=== PATIENT | female | born 1940 | race African-American/Black ===

== ENCOUNTER 2020-06-17 03:13 | Inpatient (IN) | payer MEDICARE, OTHER ==
[~2020-06-17] VITALS: Ht 167.6 cm; Wt 98.0 kg
[2020-06-17 04:49] LABS: BASOPHILS % 0.6 % (0.0-2.0); EOSINOPHILS % 1.5 % (0.0-5.0); HEMATOCRIT. 43.2 % (36.0-48.0); HEMOGLOBIN. 14.1 g/dL (12.0-16.0); LYMPHOCYTES % 32.2 % (20.0-50.0); MEAN CORPUSCULAR HEMOGLOBIN 30.8 pg (28.0-32.0); MEAN CORPUSCULAR VOLUME 94.1 fL (81.0-99.0); MEAN PLATELET VOLUME 9.8 fl (7.4-10.4); MONOCYTES % 9.9 % (2.0-8.0); NEUTROPHILS % 55.8 % (40.0-76.0); PLATELET 224 x1000/uL (130-400); RED BLOOD CELL COUNT 4.59 mill/uL (4.2-5.4); RED CELL DISTRIBUTION WIDTH 14.1 % (11.6-14.6)
[2020-06-17 04:50] LABS: CHLORIDE 106 mEq/L (98-107)
[2020-06-17 04:53] LABS: INR 1.1; PROTHROMBIN TIME 11.1 sec (9.6-11.0)
[2020-06-17 04:54] LABS: ETHANOL BLOOD < 10 mg/dL
[2020-06-17 05:13] LABS: CLARITY URINE CLOUDY (CLEAR); COLOR URINE RED (YELLOW); KETONES URINE NEGATIVE (NEGATIVE); LEUKOCYTE ESTERASE URINE TRACE (NEGATIVE); NITRITE URINE NEGATIVE (NEGATIVE); OCCULT BLOOD URINE 3+ (NEGATIVE); PROTEIN URINE 2+ (NEGATIVE); SPECIFIC GRAVITY URINE 1.012 (1.005-1.030); UROBILINOGEN URINE 0.2 E.U./dL (0.2-1.0)
[2020-06-17 05:24] LABS: OPIATES URINE SCREEN PRESUMTIVE POSITIVE (NEGATIVE)
[2020-06-17 05:25] LABS: *AMPHETAMINES SCREEN URINE NEGATIVE (NEGATIVE); *BARBITURATES SCREEN URINE NEGATIVE (NEGATIVE); *BENZODIAZEPINES SCREEN URINE NEGATIVE (NEGATIVE); *COCAINE SCREEN URINE NEGATIVE (NEGATIVE); CANNABINOID URINE SCREEN NEGATIVE (NEGATIVE); METHADONE URINE SCREEN NEGATIVE (NEGATIVE); PHENCYCLIDINE URINE SCREEN NEGATIVE (NEGATIVE)
[2020-06-17] MEDS ORDERED: DOCU-286 MT (06:32)
[2020-06-17] MEDS ORDERED: LISI-604 PO (06:37)
[2020-06-17] MEDS ORDERED: VALS160T28 MT (06:37)
[2020-06-17] MEDS ORDERED: AMLO10TA80 MT (06:40)
[2020-06-17] MEDS ORDERED: SIMV-46 MT (06:42)
[2020-06-17] MEDS ORDERED: PHEN100C4 PO (06:46)
[2020-06-17] MEDS ORDERED: PHENYTOIN SODIUM 1000MG in SODIUM CHLORIDE 0.9% 100ML IV SCH (08:00)
[2020-06-17] MEDS: AMLODIPINE 10MG TABLET PO SCH (08:55)
[2020-06-17] MEDS: LISINOPRIL 20MG TABLET PO SCH (08:57)
[2020-06-17] MEDS ORDERED: LORAZEPAM 0.5MG TABLET PO SCH (13:30)
[2020-06-17] MEDS ORDERED: HYDRALAZINE HCL 100MG TABLET PO SCH (14:00)
[2020-06-17] MEDS ORDERED: POTASSIUM CHLORIDE 20MEQ TABLET SR PO SCH (14:00)
[2020-06-17] MEDS: HYDROCODONE/ACETAMINOPHEN 10/325MG TABLET PO PRN ×2 (16:37→20:41)
[2020-06-17] MEDS ORDERED: CLONIDINE 0.1MG TABLET PO SCH (17:00)
[2020-06-17 18:03] VITALS: BP 158/55
[2020-06-17 20:00] VITALS: BP 130/79
[2020-06-17] MEDS: PHENYTOIN SODIUM EXTENDED 100MG CAPSULE PO SCH (20:41)
[2020-06-17] MEDS ORDERED: ATORVASTATIN CALCIUM 20MG TABLET PO SCH (21:00)
[2020-06-17] MEDS: HYDRALAZINE HCL 100MG TABLET PO SCH (22:33)
[2020-06-18] VITALS (7 sets, daily range): BP systolic 96–168; BP diastolic 53–99
[2020-06-18 06:00] LABS: CHLORIDE 106 mEq/L (98-107)
[2020-06-18] MEDS: HYDRALAZINE HCL 100MG TABLET PO SCH ×2 (06:13→14:28)
[2020-06-18 06:43] LABS: BASOPHILS % 0.5 % (0.0-2.0); EOSINOPHILS % 0.6 % (0.0-5.0); HEMATOCRIT. 42.2 % (36.0-48.0); HEMOGLOBIN. 13.9 g/dL (12.0-16.0); LYMPHOCYTES % 20.3 % (20.0-50.0); MEAN CORPUSCULAR HEMOGLOBIN 30.5 pg (28.0-32.0); MEAN CORPUSCULAR VOLUME 92.6 fL (81.0-99.0); MEAN PLATELET VOLUME 10.4 fl (7.4-10.4); MONOCYTES % 11.6 % (2.0-8.0); PLATELET 243 x1000/uL (130-400); RED BLOOD CELL COUNT 4.55 mill/uL (4.2-5.4); RED CELL DISTRIBUTION WIDTH 13.9 % (11.6-14.6)
[2020-06-18] MEDS: LISINOPRIL 20MG TABLET PO SCH (08:23)
[2020-06-18] MEDS: HYDROCODONE/ACETAMINOPHEN 10/325MG TABLET PO PRN ×2 (08:24→12:40)
[2020-06-18] MEDS: PHENYTOIN SODIUM EXTENDED 100MG CAPSULE PO SCH (08:25)
[2020-06-18] MEDS: AMLODIPINE 10MG TABLET PO SCH (08:25)
[2020-06-18] MEDS ORDERED: CLONIDINE 0.2MG TABLET PO SCH (14:00)
[2020-06-18] MEDS ORDERED: PHENYTOIN SODIUM EXTENDED 100MG CAPSULE PO SCH (16:00)
== END 2020-06-18 18:49 | disposition home or self-care (01) | DRG 101 ==
LOC: ER 03:13 → 5EST 06:22 → ENRESERV 15:57
PROVIDERS: ADMIT Internal Medicine; ATTEND Internal Medicine
DX: G40.909 Epilepsy, unspecified, not intractable, without status epilepticus (principal); E87.6 Hypokalemia; E11.9 Type 2 diabetes mellitus without complications; I10 Essential (primary) hypertension; Z79.899 Other long term (current) drug therapy; Z98.890 Other specified postprocedural states
CPT/HCPCS: 36415; 70551; 80048; 80053; 80185; 80305; 80320; 81003; 84484; 85025; 93005; 97162; 99285; J1165; J7050; G0480

== ENCOUNTER 2021-02-04 14:08 | Inpatient (IN) | payer MEDICARE, OTHER ==
[~2021-02-04] VITALS: Ht 162.6 cm; Wt 102.3 kg
[~2021-02-04 14:08] MED LIST: AMLO10TA80 MT; DOCU-286 MT; LISI20TA31 PO; PHEN100C4 PO; SIMV-46 MT; VALS160T28 MT
[2021-02-04] MEDS ORDERED: ACETAMINOPHEN 325MG TABLET PO ONE (15:30)
[2021-02-04 16:09] LABS: BASOPHILS % 0.6 % (0.0-2.0); CHLORIDE 98 mEq/L (98-107); EOSINOPHILS % 0.1 % (0.0-5.0); HEMATOCRIT. 37.8 % (36.0-48.0); HEMOGLOBIN. 12.7 g/dL (12.0-16.0); LYMPHOCYTES % 9.8 % (20.0-50.0); MEAN CORPUSCULAR HEMOGLOBIN 31.1 pg (28.0-32.0); MEAN CORPUSCULAR VOLUME 92.8 fL (81.0-99.0); MEAN PLATELET VOLUME 10.3 fl (7.4-10.4); MONOCYTES % 8.9 % (2.0-8.0); NEUTROPHILS % 80.6 % (40.0-76.0); PLATELET 218 x1000/uL (130-400); RED BLOOD CELL COUNT 4.07 mill/uL (4.2-5.4)
[2021-02-04] MEDS ORDERED: HYDROCODONE/ACETAMINOPHEN 5/325MG TABLET PO ONE (16:30)
[2021-02-04 16:32] LABS: CLARITY URINE CLEAR (CLEAR); COLOR URINE YELLOW (YELLOW); KETONES URINE NEGATIVE (NEGATIVE); LEUKOCYTE ESTERASE URINE NEGATIVE (NEGATIVE); NITRITE URINE NEGATIVE (NEGATIVE); OCCULT BLOOD URINE 2+ (NEGATIVE); PH URINE 5.5 (4.5-8.0); PROTEIN URINE TRACE (NEGATIVE); SPECIFIC GRAVITY URINE 1.015 (1.005-1.030); UROBILINOGEN URINE 0.2 E.U./dL (0.2-1.0)
[2021-02-04] MEDS ORDERED: CEFTRIAXONE 1 G PREMIX 50 ML IV ONE (17:15)
[2021-02-04] MEDS ORDERED: SODIUM CHLORIDE 0.9% 1,000 ML IV ONE (17:15)
[2021-02-04] MEDS ORDERED: ONDANSETRON HCL 4MG/2ML INJ IV ONE (17:15)
[2021-02-04] MEDS: LOSARTAN POTASSIUM 50 MG TABLET PO SCH (21:36)
[2021-02-04 22:01] VITALS: BP 177/65
[2021-02-04 22:09] VITALS: BP 177/65
[2021-02-04] MEDS ORDERED: ACETAMINOPHEN 325MG TABLET PO PRN (22:58)
[2021-02-04] MEDS ORDERED: HYDROCODONE/ACETAMINOPHEN 5/325MG TABLET PO NR (23:00)
[2021-02-04] MEDS ORDERED: CLONIDINE 0.2MG TABLET PO PRN (23:00)
[2021-02-04] MEDS ORDERED: ASPIRIN 81MG TABLET PO NR (23:00)
[2021-02-04] MEDS ORDERED: LORAZEPAM 2MG/ML CPJ IV PRN (23:22)
[2021-02-05] VITALS: BP 181/83
[2021-02-05] MEDS: CLONIDINE 0.2MG TABLET PO PRN ×2 (00:31→17:36)
[2021-02-05 04:00] VITALS: BP_SYST 108; BP_SYST 151; BP_DIAS 44; BP_DIAS 51
[2021-02-05 08:00] VITALS: BP 165/85
[2021-02-05] MEDS: LOSARTAN POTASSIUM 50 MG TABLET PO SCH ×2 (09:05→21:23)
[2021-02-05] MEDS: ENOXAPARIN 30MG/0.3ML SYR SUBCUT SCH ×2 (09:06→21:23)
[2021-02-05] MEDS: PHENYTOIN SODIUM EXTENDED 100MG CAPSULE PO SCH ×3 (11:37→21:23)
[2021-02-05] MEDS: SODIUM CHLORIDE 0.45% 1,000 ML IV SCH ×2 (11:38→19:56)
[2021-02-05] MEDS ORDERED: LORAZEPAM 2MG/ML CPJ IV PRN (11:45)
[2021-02-05 12:00] VITALS: BP 141/63
[2021-02-05 15:27] LABS: BASOPHILS % 0.7 % (0.0-2.0); EOSINOPHILS % 2.8 % (0.0-5.0); HEMATOCRIT. 36.6 % (36.0-48.0); HEMOGLOBIN. 12.5 g/dL (12.0-16.0); LYMPHOCYTES % 24.2 % (20.0-50.0); MEAN CORPUSCULAR HEMOGLOBIN 31.4 pg (28.0-32.0); MEAN CORPUSCULAR VOLUME 92.2 fL (81.0-99.0); MEAN PLATELET VOLUME 10.7 fl (7.4-10.4); MONOCYTES % 10.9 % (2.0-8.0); NEUTROPHILS % 61.4 % (40.0-76.0); PLATELET 211 x1000/uL (130-400); RED BLOOD CELL COUNT 3.97 mill/uL (4.2-5.4); RED CELL DISTRIBUTION WIDTH 13.7 % (11.6-14.6)
[2021-02-05 15:29] LABS: CHLORIDE 103 mEq/L (98-107)
[2021-02-05 15:35] LABS: INR 1.1; PROTHROMBIN TIME 11.5 sec (9.6-11.0)
[2021-02-05 16:00] VITALS: BP 162/84
[2021-02-05] MEDS ORDERED: LACTULOSE 20G/30ML UDC PO PRN (17:30)
[2021-02-05] MEDS ORDERED: IPRATROPIUM/ALBUTEROL 0.5-3(2.5)MG/3ML NEB HHN PRN (17:30)
[2021-02-05] MEDS ORDERED: ONDANSETRON HCL 4MG/2ML INJ IV PRN (17:30)
[2021-02-05] MEDS ORDERED: BISACODYL 10MG SUPP PR PRN (17:30)
[2021-02-05] MEDS: HYDROCODONE/ACETAMINOPHEN 10/325MG TABLET PO PRN (17:41)
[2021-02-05 20:00] VITALS: BP 125/56
[2021-02-05] MEDS ORDERED: FAMOTIDINE 20MG TABLET PO SCH (21:00)
[2021-02-06] VITALS: BP 143/82
[2021-02-06 04:00] VITALS: BP 151/83
[2021-02-06] MEDS: PHENYTOIN SODIUM EXTENDED 100MG CAPSULE PO SCH ×2 (05:27→14:09)
[2021-02-06 06:42] LABS: BASOPHILS % 0.6 % (0.0-2.0); EOSINOPHILS % 2.3 % (0.0-5.0); HEMATOCRIT. 39.5 % (36.0-48.0); HEMOGLOBIN. 13.1 g/dL (12.0-16.0); LYMPHOCYTES % 23.8 % (20.0-50.0); MEAN CORPUSCULAR HEMOGLOBIN 30.9 pg (28.0-32.0); MEAN CORPUSCULAR VOLUME 93.4 fL (81.0-99.0); MEAN PLATELET VOLUME 10.9 fl (7.4-10.4); MONOCYTES % 12.6 % (2.0-8.0); NEUTROPHILS % 60.7 % (40.0-76.0); PLATELET 211 x1000/uL (130-400); RED BLOOD CELL COUNT 4.23 mill/uL (4.2-5.4); RED CELL DISTRIBUTION WIDTH 13.7 % (11.6-14.6)
[2021-02-06 06:57] LABS: CHLORIDE 105 mEq/L (98-107)
[2021-02-06 07:17] LABS: LDL CHOLESTEROL 143 mg/dL (5-100)
[2021-02-06 07:19] LABS: HDL CHOLESTEROL 73 mg/dL (40-59); T4 FREE 0.83 ng/dL (0.76-1.46)
[2021-02-06 08:00] VITALS: BP 105/86
[2021-02-06] MEDS: LOSARTAN POTASSIUM 50 MG TABLET PO SCH (08:39)
[2021-02-06] MEDS: ENOXAPARIN 30MG/0.3ML SYR SUBCUT SCH (08:52)
[2021-02-06 12:00] VITALS: BP 151/76
[2021-02-06] MEDS: HYDROCODONE/ACETAMINOPHEN 10/325MG TABLET PO PRN (12:02)
[2021-02-06] MEDS ORDERED: DOCU-138 MT (12:28)
[2021-02-06] MEDS ORDERED: HYDR-4001 MT (12:28)
[2021-02-06 13:05] VITALS: BP 150/76
[2021-02-06] MEDS ORDERED: ATORVASTATIN CALCIUM 40MG TABLET PO SCH (21:00)
== END 2021-02-06 14:50 | disposition home or self-care (01) | DRG 552 ==
LOC: ER 14:18 → 5WST 17:11 → EDBEDREQ 17:14 → EDBEDREQTM 17:14 → ENRESERV 19:22
PROVIDERS: ADMIT Internal Medicine; ATTEND Internal Medicine
DX: M48.061 Spinal stenosis, lumbar region without neurogenic claudication (principal); E87.1 Hypo-osmolality and hyponatremia; M43.17 Spondylolisthesis, lumbosacral region; E66.9 Obesity, unspecified; G89.29 Other chronic pain; G40.909 Epilepsy, unspecified, not intractable, without status epilepticus; F17.200 Nicotine dependence, unspecified, uncomplicated; M47.897 Other spondylosis, lumbosacral region; Z82.49 Family history of ischemic heart disease and other diseases of the circulatory system; Z86.73 Personal history of transient ischemic attack (TIA), and cerebral infarction without residual deficits; Z86.011 Personal history of benign neoplasm of the brain; Z79.899 Other long term (current) drug therapy; Z68.38 Body mass index [BMI] 38.0-38.9, adult; Z87.311 Personal history of (healed) other pathological fracture; R73.9 Hyperglycemia, unspecified; I10 Essential (primary) hypertension
CPT/HCPCS: 36415; 71045; 72100; 72148; 80048; 80053; 80061; 80185; 81003; 83036; 83880; 84439; 84443; 84484; 85025; 93005; 93306; 97116; 97162; 99285; J0696; J1650; J2060; J2405; J7030

== ENCOUNTER 2024-06-27 02:53 | Emergency (ER) | payer MEDICARE, MEDICAID ==
[~2024-06-27] VITALS: Ht 157.5 cm; Wt 60.0 kg
[~2024-06-27 02:53] MED LIST changes: +DOCU-138 MT; +HYDR-4001 MT
[2024-06-27 02:57] VITALS: PULSE 68; RESP 23
[2024-06-27 03:05] VITALS: PULSE 135; TEMP 36.05844; O2SAT 100
[2024-06-27 03:15] VITALS: RESP 16
[2024-06-27] MEDS: PROPOFOL 10MG/ML 100ML 100 ML IV ONE (03:15)
[2024-06-27] MEDS ORDERED: NOREPINEPHRINE 8 MG in DEXT 5% WATER 242 ML IV PRN (03:15)
[2024-06-27] MEDS ORDERED: SODIUM BICARBONATE 8.4% 50MEQ/50ML SYR IV ONE (03:35)
[2024-06-27] MEDS ORDERED: SODIUM BICARBONATE 100 MEQ in DEXTROSE 5% WATER 900 ML IV SCH (03:45)
[2024-06-27] MEDS: SODIUM BICARBONATE 100 MEQ in DEXTROSE 5% WATER 900 ML IV SCH (03:45)
[2024-06-27 04:05] LABS: CHLORIDE 100 mEq/L (98-107); POTASSIUM 5.6 mEq/L (3.5-5.1); SODIUM 152 mEq/L (136-145)
[2024-06-27 04:06] LABS: CARBON DIOXIDE 26 mEq/L (21-32)
[2024-06-27 04:07] LABS: CALCIUM 7.7 mg/dL (8.7-10.4)
[2024-06-27 04:11] LABS: CREATININE 3.2 mg/dL (0.6-1.0); GLUCOSE 90 mg/dL (70-105)
[2024-06-27 04:12] LABS: UREA NITROGEN BLOOD 37 mg/dL (9-23)
[2024-06-27 04:35] LABS: HEMATOCRIT. 27.2 % (36.0-48.0); HEMOGLOBIN. 8.6 g/dL (12.0-16.0); MEAN CORPUSCULAR HEMOGLOBIN 34.1 pg (28.0-32.0); MEAN CORPUSCULAR HGB CONC 31.9 g/dL (31.0-37.0); MEAN CORPUSCULAR VOLUME 107.1 fL (81.0-99.0); MEAN PLATELET VOLUME 8.7 fl (7.4-10.4); RED BLOOD CELL COUNT 2.54 mill/uL (4.2-5.4); RED CELL DISTRIBUTION WIDTH 18.7 % (11.6-14.6); WHITE BLOOD COUNT 14.1 x1000/uL (4.5-11.0)
[2024-06-27 04:44] LABS: DIFFERENTIAL COMMENT 1
[2024-06-27 05:05] LABS: PLATELET 45 x1000/uL (130-400)
[2024-06-27 05:09] LABS: PHOSPHORUS 8.5 mg/dL (2.5-4.9)
[2024-06-27 05:10] LABS: LACTIC ACID 20.1 mmol/L (0.4-2.0); TROPONIN I HIGH SENSITIVITY 575 ng/L (3.0-34)
[2024-06-27 06:59] VITALS: BP 77/53
[2024-06-27] MEDS: NOREPINEPHRINE 8MG/250ML PMX 250 ML IV PRN (06:59)
[2024-06-27 08:39] LABS: INR 2.5
[2024-06-27 11:03] LABS: NUCLEATED RED BLOOD CELLS 1 /100 WBC; PLATELET ESTIMATE MARKEDLY DECREASED
[2024-06-27 11:04] LABS: ANISOCYTOSIS 2+
== END 2024-06-27 04:44 ==
LOC: ER 03:07
DX: I46.9 Cardiac arrest, cause unspecified (principal); I11.0 Hypertensive heart disease with heart failure; Z79.899 Other long term (current) drug therapy; Z98.890 Other specified postprocedural states
CPT/HCPCS: 36556; 80048; 83880; 83605; 83690; 83735; 84100; 85025; 85610; 85730; 86850; 86900; 86901; 84484; 36415; 92950; 31500; 99291; 93005; 71045; J3490 ×2; J2704; 94002; J7070